=== PATIENT | male | born 1995 | race Caucasian/White ===

== ENCOUNTER 2016-08-20 22:14 | Emergency (ER) | payer BC ==
[~2016-08-20] VITALS: Ht 190.5 cm; Wt 98.6 kg
[2016-08-20 22:24] VITALS: TEMP 37.2; Ht 190.5 cm; Wt 98.6 kg
[2016-08-20] MEDS ORDERED: HYDROmorphone INJ 2 MG/ML SYR/VIAL IV STA (23:12)
[2016-08-20] MEDS ORDERED: ONDANSETRON INJ 2 MG/ML 2 ML VIAL IV STA (23:12)
[2016-08-20] MEDS ORDERED: SODIUM CHLORIDE 0.9% 1000ML 1,000 ML IV STA (23:14)
--- NOTE | 2016-08-20 23:43 | EMERGENCY ROOM VISIT NOTE ---
History Report prepared by Pepe: Toby Castillo Under the Supervision of: Dr. Candice Mooney D.O. First contact with patient: 23:02 Chief Complaint: ABDOMINAL PAIN Stated Complaint: ABD PAIN,CHURNING,POSSIBLE PSEUDOCYST OBSTRUCTION History of Present Illness The patient is a 20 year old male who presents to the Emergency Room with complaints of persistent abdominal pain that began 1.5 days prior to arrival. The patient describes his pain as a "full" feeling in the epigastric region of his abdomen. He states that he has not been able to eat anything over the past few days due to the full feeling. He did have a normal bowel movement today. The patient has had a significant history of abdominal issues over the past month. The patient was in the hospital from July 20- and was diagnosed with a gallstone and pancreatitis. He was on TPN for the duration of this hospitalization. He had his gallbladder removed on the 31 of July. The patient also had a pseudocyst drained and a stent placed in his pancreas. He notes that the physician noted that there was another pseudocyst present on the pancreas, but it did not need to be removed. Following these procedures the patient was feeling well, and notes that this is a separate episode of symptoms. The patient was first diagnosed with pancreatitis and the pseudocysts in April of 2016. He denies taking any prescription medications at home at this time. 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 A total of 10 systems reviewed and were otherwise negative. Past Medical & Surgical Medical Problems: (1) Gall stone pancreatitis (2) Pseudocyst of pancreas Surgical Problems: (1) Hx of cholecystectomy Pancreatitis Family History Diabetes mellitus Gallbladder disease Kidney disease Kidney stones Social History Smoking Status: Never Smoker Marital Status: single Housing Status: lives with family Occupation Status: [employer] Current/Historical Medications No Active Prescriptions or Reported Meds Allergies Coded Allergies: No Known Allergies (Unverified , 08/20/16) Physical Exam Vital Signs Date Time Temp Pulse Resp B/P Pulse Ox O2 Delivery O2 Flow Rate FiO2 08/21/16 02:21 99 20 135/70 95 08/21/16 00:18 109 18 157/95 97 Room Air 08/20/16 22:24 37.2 127 18 143/87 100 Room Air Physical Exam General: Patient is pale and diaphoretic. HEENT: Head - normocephalic and atraumatic Pupils are equal, round, and reactive to light. Extraocular eye muscles are intact, and sclera are anicteric. Nose - moist nasal mucosa without discharge. Mouth - moist buccal mucosa. Oropharynx is nonerythematous and there is no tonsillar exudate, but tonsils are very large. Neck: Supple; no JVD, nuchal rigidity, cervical lymphadenopathy. Heart: Regular rate and rhythm. There is a normal S1 and S2 with no murmurs, clicks, or gallops appreciated. Lungs: Clear to auscultation bilaterally with no wheezes, rales, or rhonchi. Abdomen: Soft, with epigastric pain to palpation, nondistended, with good bowel sounds. There are no palpable pulsatile masses or hepatosplenomegaly. There is no guarding, rigidity, or rebound noted. Extremities: No evidence of cyanosis, clubbing, or edema. There are easily palpable peripheral pulses. Skin: warm and diaphoretic, with good turgor and no rashes. Medical Decision & Procedures ER Provider Diagnostic Interpretation: X-ray results as stated below per interpretation by me and the radiologist: KUB OBSTRUCTION SERIES: There is a Pancreatic stent in place, surgical clips in the right upper quadrant. Normal bowel gas pattern with some gastric distention. Laboratory Results 08/21/16 00:13 Red Blood Count 4.15, Mean Corpuscular Volume 82.2, Mean Corpuscular Hemoglobin 27.7, Mean Corpuscular Hemoglobin Concent 33.7, Mean Platelet Volume 10.3, Neutrophils (%) (Auto) 75.2, Lymphocytes (%) (Auto) 12.8, Monocytes (%) (Auto) 11.4, Eosinophils (%) (Auto) 0.3, Basophils (%) (Auto) 0.1, Neutrophils # (Auto ) 11.25, Lymphocytes # (Auto) 1.92, Monocytes # (Auto) 1.71, Eosinophils # (Auto ) 0.05, Basophils # (Auto) 0.02 08/21/16 00:13 Test 08/21/16 00:13 White Blood Count 14.98 K/uL (4.8-10.8) Red Blood Count 4.15 M/uL (4.7-6.1) Hemoglobin 11.5 g/dL (14.0-18.0) Hematocrit 34.1 % (42-52) Mean Corpuscular Volume 82.2 fL (80-100) Mean Corpuscular Hemoglobin 27.7 pg (25-34) Mean Corpuscular Hemoglobin Concent 33.7 g/dl (32-36) Platelet Count 277 K/uL (130-400) Mean Platelet Volume 10.3 fL (7.4-10.4) Neutrophils (%) (Auto) 75.2 % Lymphocytes (%) (Auto) 12.8 % Monocytes (%) (Auto) 11.4 % Eosinophils (%) (Auto) 0.3 % Basophils (%) (Auto) 0.1 % Neutrophils # (Auto) 11.25 K/uL (1.4-6.5) Lymphocytes # (Auto) 1.92 K/uL (1.2-3.4) Monocytes # (Auto) 1.71 K/uL (0.11-0.59) Eosinophils # (Auto) 0.05 K/uL (0-0.5) Basophils # (Auto) 0.02 K/uL (0-0.2) RDW Standard Deviation 47.2 fL (36.4-46.3) RDW Coefficient of Variation 15.6 % (11.5-14.5) Immature Granulocyte % (Auto) 0.2 % Immature Granulocyte # (Auto) 0.03 K/uL (0.00-0.02) Anion Gap 12.0 mmol/L (3-11) Est Creatinine Clear Calc Drug Dose 179.1 ml/min Estimated GFR () 149.6 Estimated GFR (Non- 129.0 BUN/Creatinine Ratio 7.7 (10-20) Calcium Level 9.3 mg/dl (8.5-10.1) Total Bilirubin 0.8 mg/dl (0.2-1) Direct Bilirubin 0.2 mg/dl (0-0.2) Aspartate Amino Transf (AST/SGOT) 17 U/L (15-37) Alanine Aminotransferase (ALT/SGPT) 20 U/L (12-78) Alkaline Phosphatase 116 U/L (45-117) Total Protein 9.8 gm/dl (6.4-8.2) Albumin 4.1 gm/dl (3.4-5.0) Lipase 126 U/L (73-393) Laboratory results per my review. Medications Administered Medications (Trade) Dose Ordered Sig/Lena Route Start Time Stop Time Status Last Admin Dose Admin Ondansetron HCl (Zofran Inj) 4 mg NOW STAT IV 08/20/16 23:12 08/20/16 23:14 DC 08/21/16 00:12 4 MG Hydromorphone HCl 2 mg 2 mg NOW STAT IV 08/20/16 23:12 08/20/16 23:14 DC 08/21/16 00:12 2 MG Sodium Chloride (Nss 1000ml) 1,000 ml @ 999 mls/hr Q1H1M STAT IV 08/20/16 23:14 08/21/16 00:14 DC 08/21/16 00:12 999 MLS/HR Procedure Medications Ordered: Dilaudid, Zofran, Sodium Chloride. ED Course 2305: Past medical records reviewed. The patient was evaluated in room B4. A complete history and physical exam was performed. An IV lock was initiated and labs were drawn as above. 2312: Ordered Dilaudid 2 mg IV, Zofran 4 mg IV. 2314: Ordered Sodium Chloride 1000 mL @ 999 mL/hr IV. The patient went for an obstruction series as described above. 0153: Upon reevaluation, the patient states that his symptoms have resolved. The patient was able to drink liquids without difficulty. I discussed findings and results with him. He verbalized agreement of the treatment plan. The patient was discharged home. Medical Decision This patient is a 20 year old male who presents to the emergency department for abdominal pain. Differential diagnosis include; Recurrent pancreatitis, necrosis of pancreas, pancreatic pseudocyst, small bowel obstruction, retained common bowel duct stone. Laboratory studies were reviewed and show; a white count of 14.9, he was anemic with a hemoglobin of 11.5, normal renal function, glucose of 101, normal LFTs, and normal lipase. The patient presents with 2 day history of epigastric abdominal pain and decreased appetite. The patient has quite an extensive history over the past year with pancreatic stent secondary to pseudocyst and a recent cholecystectomy. The patient is followed at [facility] in [place]. His workup this evening is unremarkable. I've asked the patient to rest and take a bland diet. He is feeling much better after the pain medications. I've asked him to follow-up in the morning by phone with his doctors from [facility]. He was told to return to the emergency department if he had any worsening symptoms such as vomiting, fever or worsening pain. Impression Primary Impression: Epigastric pain Scribe Attestation The scribe's documentation has been prepared under my direction and personally reviewed by me in its entirety. I confirm that the note above accurately reflects all work, treatment, procedures, and medical decision making performed by me. Departure Information Dispostion Home / Self-Care Prescriptions No Active Prescriptions or Reported Meds Forms HOME CARE DOCUMENTATION FORM, IMPORTANT VISIT INFORMATION Patient Instructions My [facility] Additional Instructions Rest. Take a bland diet and plenty of clear liquids Follow up later today with your docs at [facility] Return to the ER if you develop worsening pain, fever, vomiting
[2016-08-21 00:45] LABS: BASO % 0.1 %; BASO ABS # 0.02 K/uL (0-0.2); COMPLETE YES; EOS % 0.3 %; HEMATOCRIT 34.1 % (42-52); IG% 0.2 %; LYMPH % 12.8 %; LYMPH ABS # 1.92 K/uL (1.2-3.4); MEAN CELL VOLUME 82.2 fL (80-100); MEAN CORPUSCULAR HEMOGLOBIN 27.7 pg (25-34); MEAN CORPUSCULAR HGB CONC 33.7 g/dl (32-36); MEAN PLATELET VOLUME 10.3 fL (7.4-10.4); MONO % 11.4 %; NEUT % 75.2 %; PLATELET COUNT 277 K/uL (130-400); RED BLOOD COUNT 4.15 M/uL (4.7-6.1); WHITE BLOOD COUNT 14.98 K/uL (4.8-10.8)
[2016-08-21 01:05] LABS: BUN/CREATININE RATIO 7.7 (10-20); CALCIUM 9.3 mg/dl (8.5-10.1); CREATININE 0.78 mg/dl (0.60-1.40); POTASSIUM 3.7 mmol/L (3.5-5.1)
[2016-08-21 02:21] VITALS: BP 135/70; PULSE 99; O2SAT 95
--- NOTE | 2016-08-21 06:56 | DIAGNOSTIC IMAGING REPORT ---
ABDOMEN 2VIEW W/PA CHEST RTN CLINICAL HISTORY: Abdominal pain. Possible small bowel obstruction. COMPARISON STUDY: No previous studies for comparison. FINDINGS: There is a suspected small left pleural effusion. There are left basilar atelectatic changes. There is no free intraperitoneal air.] Erect and supine views of the abdomen reveal a right midabdominal stent, possibly representing a pancreatic duodenal stent. There are surgical clips in the right upper quadrant consistent with a prior cholecystectomy. There are multiple right lower quadrant air-fluid levels. There are no transition zones indicate a significant bowel obstruction. IMPRESSION: Nonspecific bowel gas pattern with multiple right lower quadrant air-fluid levels. No conventional radiographic evidence of bowel obstruction. No free air. Electronically signed by: Elijah Barrios M.D. 08/21/2016 6:54 AM Dictated Date/Time: 08/21/2016 6:52 AM
== END 2016-08-21 02:23 | disposition home or self-care (01) ==
LOC: C.EDB 22:15
DX: R10.13 Epigastric pain (principal); K85.90 Acute pancreatitis without necrosis or infection, unspecified; K86.3 Pseudocyst of pancreas; Z83.3 Family history of diabetes mellitus; Z84.1 Family history of disorders of kidney and ureter; Z96.89 Presence of other specified functional implants